=== PATIENT | male | born 1995 | race Caucasian/White ===

== ENCOUNTER 2016-11-16 20:34 | Emergency (ER) | payer OTHER, SELFPAY ==
[~2016-11-16] VITALS: Ht 198.1 cm; Wt 98.8 kg
[2016-11-16 20:38] VITALS: BP 132/79
[2016-11-16] MEDS: ADACEL/BOOSTRIX VACCINE (DIPHTH/PERTUSS/ACELL/TETANUS)0.5ML SYR (90715) IM ONE (21:33)
== END 2016-11-16 21:55 | disposition home or self-care (01) ==
LOC: M ED 20:34
DX: S01.01XA Laceration without foreign body of scalp, initial encounter (principal); W22.8XXA Striking against or struck by other objects, initial encounter; Y92.9 Unspecified place or not applicable; Y93.9 Activity, unspecified; Y99.0 Civilian activity done for income or pay; F17.200 Nicotine dependence, unspecified, uncomplicated; Z86.79 Personal history of other diseases of the circulatory system

== ENCOUNTER 2016-11-23 06:28 | Emergency (ER) | payer OTHER, SELFPAY ==
[~2016-11-23] VITALS: Ht 198.1 cm; Wt 95.0 kg
[2016-11-23 06:37] VITALS: BP 131/75
== END 2016-11-23 07:51 | disposition home or self-care (01) ==
LOC: M ED 06:28
DX: S01.01XD Laceration without foreign body of scalp, subsequent encounter (principal); W22.8XXD Striking against or struck by other objects, subsequent encounter; Y92.9 Unspecified place or not applicable; Y93.9 Activity, unspecified; Y99.0 Civilian activity done for income or pay; Z48.02 Encounter for removal of sutures